=== PATIENT | female | born 1950 | race Caucasian/White ===

== ENCOUNTER 2023-05-18 21:09 | Emergency (ER) | payer MEDICARE, SELFPAY ==
--- NOTE | ~2023-05-18 | CT_ITS ---
EXAMINATION: CT ABDOMEN AND PELVIS WITH CONTRAST CLINICAL INFORMATION: Pancreatitis COMPARISON: None available. TECHNIQUE: Multidetector volumetric images were obtained from the superior aspect of the liver through the pubic symphysis following administration 85 mL of Omnipaque 350 intravenous contrast. Sagittal and coronal reformatted images were obtained on the technologist's workstation. Oral contrast: No This CT examination was performed using dose optimization techniques as appropriate, variously including the following: *Automated exposure control *Adjustment of mA and/or kV according to patient size (this includes techniques or standardized protocols for targeted exams where dose is matched to indication/reason for exam; i.e. extremities or head) *Use of iterative reconstruction technique DLP: 929 mGy-cm FINDINGS: LUNG BASES: The visualized lung bases are unremarkable. LIVER, GALLBLADDER, AND BILIARY TREE: The liver is normal in size, shape, and attenuation. No focal hepatic lesion or biliary ductal dilatation is present. The gallbladder has been surgically removed. The common bile duct is normal caliber. PANCREAS: The pancreas is homogeneous in density and normal size. The pancreatic duct is prominent and measures 4 mm in the body. The peripancreatic fat borders are maintained normal. SPLEEN: Unremarkable. ADRENAL GLANDS: Unremarkable. KIDNEYS AND URETERS: The kidneys are normal in size, shape, and attenuation. A sonogram calculus is seen in the left kidney pelvis extending to the lower pole resulting in lower pole caliectasis. There are mid and lower pole calyceal stones. The staghorn calculi is 13 cm from the posterior skin line and the lower calyceal stone is 11.7 cm from posterior skin line. No right-sided renal calculi seen. There is no right hydronephrosis. Right renal artery is retrocaval. BLADDER: Unremarkable. GASTROINTESTINAL TRACT: There is scattered stool and gas seen throughout the colon without any significant distention. The small bowel loops are normal caliber. Appendix is not visualized. No free air or free fluid seen. There are post gastric bypass or reduction changes with hiatal hernia. There is mucosal or mural thickening involving the hiatal hernia. ABDOMINAL WALL: Tiny umbilical hernia containing fat. LYMPH NODES: Normal. VASCULAR: Unremarkable. PELVIC VISCERA: Unremarkable. OSSEOUS STRUCTURES: Mild degenerative disc changes L4-L5 disc level. No aggressive lytic or sclerotic process seen. CT/CT abdomen pelvis w IV con IMPRESSION: The pancreas is unremarkable. Pancreatic duct is prominent measuring 4 mm but no focal lesion seen Staghorn calculi left kidney with lower pole caliectasis and stones. No hydronephrosis. Cholecystectomy with normal CBD. Gastric bypass or reduction surgery with dilated distal esophagus/small hiatal hernia with mural thickening. This could cause patient's epigastric pain. Fleischner guidelines were followed.
--- NOTE | ~2023-05-18 | XR_ITS ---
EXAMINATION: XR CHEST CLINICAL INFORMATION: Chest pain COMPARISON: None available. TECHNIQUE: Frontal view of the chest was obtained. FINDINGS: No significant abnormality is noted involving the heart, lungs, mediastinum, bony thorax or soft tissues. XR/XR chest 1V IMPRESSION: Unremarkable chest examination.
[2023-05-18 21:11] VITALS: BP 150/76; PULSE 66; O2SAT 97
[2023-05-18 21:19] VITALS: BP 154/49; PULSE 65; RESP 19; O2SAT 100; BMI 43.1
--- NOTE | 2023-05-18 21:28 | PC.NURSE ---
Pt ambulatory with this RN to restroom. Unsteady gait.
--- NOTE | 2023-05-18 22:07 | PC.NURSE ---
Pts daughter Valarie Cordova can be reached at [phone] and her can be reached at [phone].
--- NOTE | 2023-05-18 23:22 | PC.NURSE ---
Provider at bedside for evaluation.
--- NOTE | 2023-05-18 23:27 | ED_ITS ---
HPI - Fall General Chief Complaint: Fall Stated Complaint: fall etoh Time Seen by Provider: 05/18/23 21:27 History of Present Illness HPI Narrative: patient is a 72-year-old female, status post ETOH and fell in the bathroom. Patient does not remember the exact event. Denies hitting head. Not blood thinners. Had a previous history of rib fractures on the left. Family wants her to be evaluated. She has no complaints and is very hungry. Related Data Allergies Allergy/AdvReac Type Severity Reaction Status Date / Time No Known Allergies Allergy Verified 05/18/23 23:25 Review of Systems Review of Systems: Positive EtOH Yes all other systems are reviewed and are negative PMFSH Past Medical History Attestation statement: The following information was validated with the patient. Social History Social History Advance Directives: No Advance Directives Information Provided: Yes Physical Exam Vital Signs: Vital Signs: Last Vital Signs Pulse 65 05/18/23 21:19 Resp 19 05/18/23 21:19 BP 154/49 H 05/18/23 21:19 Pulse Ox 100 05/18/23 21:19 O2 Del Method Room Air 05/18/23 21:19 BMI result Body Mass Index 43.1 Appearance: Alert. Oriented X3. No acute distress. Eyes: Pupils equal, round and reactive to light. ENT: Pharynx normal. Neck: Normal inspection. Neck supple. No lymph nodes noted. No crepitus. No posterior C-spine tenderness on palpation CVS: Normal heart rate and rhythm. Pulses normal. Normal S1 and S2 Respiratory: No respiratory distress. Breath sounds normal. No Wheezing. No rales Abdomen: Soft and nontender. No rigidity. No distention. good BS x4 Skin: Skin warm and dry. Normal skin color. Normal skin turgor. Extremities: No lower extremity edema. Neurovascular intact to all extremities. No Lacerations. No Rash Neuro: Oriented X 3. No motor deficit. No sensory deficit. Moving all extermities. No slurred speech Medications Administered Discontinued Medications Generic Name Dose Route Start Last Admin Trade Name Freq PRN Reason Stop Dose Admin Iohexol 85 ml 05/19/23 00:53 05/19/23 00:53 Iohexol 350 Mg/Ml 100 Ml Infus..Btl IV 05/19/23 00:54 85 ml ONCE ONE Administration Medical Decision Making Medical Decision Making [facility] Narrative: Patient is status post fall at home. X-ray showed no acute evidence of fracture. Alcohol level was over 100. Patient monitored in the emergency department. Question of abdominal pain. Lipase slightly elevated. CT scan of the abdomen was grossly negative for any pancreatic swelling. Positive hiatal h ernia. Will have patient follow-up on an outpatient basis. Told to stop drinking. Closely follow up on an outpatient basis. There is no head injury. There is no evidence of any rib fracture on CT scan. In stable condition. Patient's alcohol was 192. Lab Data [facility] Lab Attestation statement: I reviewed the patient's lab results. 05/18/23 23:49 05/18/23 23:49 Labs: Lab Results 05/18/23 05/18/23 Range/Units 23:49 23:49 WBC 9.8 (4.8-10.8) X10*3/uL RBC 3.82 L (4.20-5.50) X10*6/uL Hgb 12.8 (12.0-16.0) g/dl Hct 38.1 (37.0-47.0) % MCV 99.7 H (80.0-98.0) fL MCH 33.5 H (27.0-33.0) pg MCHC 33.6 (31.0-35.0) g/dl RDW 13.0 (11.0-16.0) % Plt Count 288 (160-400) X10*3/uL MPV 9.4 (9.4-12.3) fL Immature Gran % (Auto) 0.4 (0.0-0.4) % Neut % (Auto) 51.1 (45-73) % Lymph % (Auto) 33.7 (20-40) % [place] % (Auto) 8.8 (2-11) % Eos % (Auto) 5.3 H (0-4) % Baso % (Auto) 0.7 (0-2) % Lymph # (Auto) 3.3 (1.2-4.9) X10*3/uL [place] # (Auto) 0.9 (0.1-1.2) X10*3/uL Eos # (Auto) 0.5 H (0.0-0.4) X10*3/uL Baso # (Auto) 0.1 (0.0-0.2) X10*3/uL Abs Immat Gran (auto) 0.04 H (0.00-0.03) X10*3/uL Absolute Neuts (auto) 5.0 (2.0-8.3) x10*3/uL Absolute Nucleated RBC 0.000 (0.0-0.012) X10*3/uL Nucleated RBC % (auto) 0.0 (0.0-0.2) /100WBC Sodium 142 (135-145) mmol/L Potassium 4.6 (3.3-5.1) mmol/L Chloride 110 H (96-108) mmol/L Carbon Dioxide 20 L (22-29) mmol/L Anion Gap 17 (12-20) BUN 18 H (9-16) mg/dL Creatinine 1.13 (0.5-1.4) mg/dL Estim Creat Clear Calc 59.3 Estimated GFR 48 Random Glucose 105 (60-115) mg/dL Calcium 9.3 (8.4-10.2) mg/dL Total Bilirubin 0.3 (0.0-1.0) mg/dL Direct Bilirubin 0.1 (0.0-0.5) mg/dL AST 30 (5-31) U/L ALT 32 H (0-31) U/L Alkaline Phosphatase 98 (39-117) U/L Total Protein 6.9 (6.5-8.0) g/dL Albumin 4.0 (3.5-5.0) g/dL Lipase 253 H (8-78) U/L Ethyl Alcohol 192 mg/dL Independent Interpretation I performed an independent interpretation of an: CT Scan Interpretation: Grossly negative for any acute evidence of perforation Discharge Plan Discharge Clinical Impression: Fall, Alcohol intoxication Patient Disposition: Home, Self-Care Instructions: Alcohol Intoxication (ED), Fall Prevention (ED), Fall Prevention for Older Adults (ED) Referrals: Physician,Sabino Davis [Primary Care Provider] - 05/21/23
[2023-05-18 23:53] LABS: MANUAL DIFF FLAG NO
[2023-05-18 23:55] LABS: Basophils Absolute Auto 0.1 X10*3/uL (0.0-0.2); Basophils Percent Auto 0.7 % (0-2); Eosinophils Absolute Auto 0.5 X10*3/uL (0.0-0.4); Eosinophils Percent Auto 5.3 % (0-4); Hematocrit 38.1 % (37.0-47.0); Hemoglobin 12.8 g/dl (12.0-16.0); Imm Gran Abs Auto 0.04 X10*3/uL (0.00-0.03); Imm Gran Pct Auto 0.4 % (0.0-0.4); Lymphocytes Absolute Auto 3.3 X10*3/uL (1.2-4.9); Lymphocytes Percent Auto 33.7 % (20-40); Mean Corpuscular HGB Conc 33.6 g/dl (31.0-35.0); Mean Corpuscular Hemoglobin 33.5 pg (27.0-33.0); Mean Corpuscular Volume 99.7 fL (80.0-98.0); Mean Platelet Volume 9.4 fL (9.4-12.3); Monocytes Absolute Auto 0.9 X10*3/uL (0.1-1.2); Monocytes Percent Auto 8.8 % (2-11); Neutrophils Percent Auto 51.1 % (45-73); Platelet Count 288 X10*3/uL (160-400); Red Blood Count 3.82 X10*6/uL (4.20-5.50); White Blood Count 9.8 X10*3/uL (4.8-10.8)
[2023-05-19 00:15] LABS: Alanine Aminotransferase 32 U/L (0-31); Alkaline Phosphatase 98 U/L (39-117); Anion Gap 17 (12-20); Aspartate Amino Transferase 30 U/L (5-31); Bilirubin Direct 0.1 mg/dL (0.0-0.5); Bilirubin Total 0.3 mg/dL (0.0-1.0); Blood Urea Nitrogen 18 mg/dL (9-16); Calcium 9.3 mg/dL (8.4-10.2); Carbon Dioxide 20 mmol/L (22-29); Chloride 110 mmol/L (96-108); Creatinine Clr Calc Pharmacy 59.3; Estimated Glomerular Filt Rate 48; Ethanol 192 mg/dL; Glucose Random 105 mg/dL (60-115); Lipase 253 U/L (8-78); Potassium 4.6 mmol/L (3.3-5.1); Sodium 142 mmol/L (135-145); Total Protein 6.9 g/dL (6.5-8.0)
--- NOTE | 2023-05-19 00:18 | PC.NURSE ---
Food provider per request and MD [email or web address]
[2023-05-19] MEDS: iohexoL 350 MG/ML 100 ML INFUS..BTL 85 ML IV (00:53)
[2023-05-19 02:42] VITALS: BP 97/67; PULSE 90; RESP 16; O2SAT 96
== END 2023-05-19 02:43 | disposition home or self-care (01) ==
PROVIDERS: Emergency Provider Emergency Medicine Emergency Medical Services
DX: Z04.3 Encounter for examination and observation following other accident (principal); F10.920 Alcohol use, unspecified with intoxication, uncomplicated; Y90.6 Blood alcohol level of 120-199 mg/100 ml; Z91.81 History of falling; K44.9 Diaphragmatic hernia without obstruction or gangrene
CPT/HCPCS: 36415; 71045; 74177; 80048; 80076; 80307; 83690; 85025; 99284; Q9967